=== PATIENT | female | born 1950 | race Caucasian/White ===

== ENCOUNTER → 2020-04-28 10:14 | Outpatient (CLI) | payer OTHER, SELFPAY ==
[2020-04-29 12:26] LABS: COVID19 Sendout Not Detected (Not Detect)
== END ==
PROVIDERS: Visit Provider Physician Assistant
DX: Z11.59 Encounter for screening for other viral diseases (principal)
CPT/HCPCS: 87635

== ENCOUNTER 2020-05-01 05:49 | Day surgery (SDC) | payer OTHER, SELFPAY ==
[2020-04-25 12:32] VITALS: BMI 21.4
[2020-05-01] VITALS (17 sets, daily range): BP systolic 116–165; BP diastolic 66–95; PULSE 54–73; RESP 12–22; TEMP 35.7–36.9; O2SAT 92–100; BMI 21.4
--- NOTE | 2020-05-01 | DI.RAD.S_ITS ---
PROCEDURE: XR KNEE RT 1TO2V INDICATIONS: TOTAL RIGHT KNEE TECHNIQUE: Two view(s) of the knee acquired. COMPARISON: None. FINDINGS: Bones: Patient is status post knee joint arthroplasty. Hardware components are in expected positions. Visualized bony structures are intact. Soft tissues: Overlying postoperative changes are noted. IMPRESSION: Normal alignment after right total knee arthroplasty. Dictated by: Tommy Grajeda M.D. on 05/01/2020 at 10:33 Approved by: Tommy Grajeda M.D. on 05/01/2020 at 10:34
[2020-05-01] MEDS: LACTATED RINGERS 1,000 ML 42 ML IV ×3 (07:14→10:25)
[2020-05-01] MEDS: ACETAMINOPHEN 325 MG TABLET 975 MG PO (07:23)
--- NOTE | 2020-05-01 07:41 | PM.PREOP ---
Pre-operative Note COVID-19 COVID-19 status: Negative Result date/Date tested (Pos, Neg/Pending): 04/28/20 Interval Note History & Physical reviewed/Exam performed by Physician: Yes Changes to H&P: No H&P completed within 30 days and has changed as indicated here:: Plan for right total knee arthroplasty.
[2020-05-01] MEDS: CEFAZOLIN 2 GM/100 ML FROZ.PIGGY IV ×3 (07:43→23:33)
[2020-05-01] MEDS: TRANEXAMIC ACID 1,000 MG VIAL 1000 MG IV ×2 (08:10→09:20)
--- NOTE | 2020-05-01 08:20 | SUR.OPER ---
Supine on padded OR bed. Pillow under head, arms secured on padded armboards <90 degree abduction. Safety belt across torso. Non-operative leg secured with tape over blanket over lower leg. Table positioner with bump for operative leg. Foam padded brace at thigh of operative leg.
[2020-05-01] MEDS: ROPIVACAINE 0.5% PF 5 MG/ML 20ML VIAL 30 ML INJ (08:28)
[2020-05-01] MEDS: KETOROLAC 30 MG/ML VIAL INJ (08:29)
[2020-05-01] MEDS: MORPHINE 4 MG/ML INJ INJ (08:30)
--- NOTE | 2020-05-01 09:41 | P.OP_ITS ---
Operative Date/Time/Diagnoses Date of procedure: 05/01/20 Time of procedure: 09:41 Pre-op diagnosis: right knee OA Post-op diagnosis: same Procedure & Clinicians Procedure: right total knee arthroplasty Same procedure as scheduled: Yes Indications: Right knee osteoarthritis which has failed conservative measures. Surgeon: James Jones Boiler Control Room Operator: Eusebio Alas Anesthesia Type: Spinal and MAC +/- Operative Notes Findings: medial compartment bone on bone osteoarthritis, PF bone on bone osteoarthritis, Grade 4 chondromalacia of lateral compartment Closure Type: primary Specimen(s): none sent Prosthetic devices, grafts, tissues, transplants, or devices: Gallegos [employer] Nephew Journey 2 CR size 5 right femur Journey size 3 right tibial base plate 29 mm oval patellar button Size 3-4 right 9 mm thick Journey 2 deep dish polyethylene Estimated Blood Loss (mL): 100 Blood products transfused: none Tourniquet time (min): 60 Procedure in detail: Patient was met in the preoperative holding area where the site and side of surgery were marked by MD. Surgical consent has been reviewed and signed in clinic however this was not transmit over to the hospital so surgical consent was read done in the preoperative holding area all questions were answered patient demonstrates understanding of the risks and benefits of surgery. Patient was then brought back in the operating room where she received received a spinal anesthetic she was transferred onto the operating room table a nonsterile tourniquet was placed on the right thigh and the right lower extremities prepped and draped in normal sterile fashion. A surgical time-out was performed verifying the site and side of surgery as well as the name of the patient. A midline incision over the knee was made using 10. Blade. At this point the spinal was not complete so she received anesthesia. Medial and lateral flaps were elevated with a 10. Blade. A medial parapatellar arthrotomy was then performed after placing a FiberWire anti propagation states. Hoffa's fat pad was released off the anterior aspect of the tibia and Hoffa's fat pad was removed. A medial peel was then performed which was slightly larger than my normal peel due to varus deformity of the knee which was partially correctable on preop exam Whitesides line was then marked. The ACL was removed. Lateral meniscus was also removed. The femoral drill was then used approximately 1 cm anterior to the PCL footprint. This gained us access the femoral canal this was then repeated for the tibial side at the ACL footprint. The intramedullary guide for the femoral cut was then placed and a 5 degree cut was made on the right distal femur. We ended up pinning at neutral and then taking 2 more mm. We then turned our attention to the tibial side intramedullary joselyn was placed and the tibial cutting jig was then placed. Drop lock joselyn was used to verify varus and valgus alignment in a 3rd pin was then placed. Oscillating saw was used to make our tibial cut we then brought the knee into full extension and was still little tight in extension as well as flexion. We took 2 more mm off the tibia which he was seen 9 mm extension and flexion gap based off static blocks. We then sized the femur which was a size 5 and set rotation based off a gap global expansion sales director. This was then verified with epicondylar axis as well as Whitesides line. The 5 in 1 cutting block for size 5 was then pinned in place and oscillating saw was used to make these cuts. The cutting block was then removed. The tibia was sized to a size 3 or 4. We initially trialed with this size 4 tibial base plate a 9 mm thick CR polyethylene we used a floating technique to the lori our external rotation of the tibial base plate. The patella was then cut and sized to size 29 mm oval button this was then drilled and a trial patella button was placed. Trial components were then removed and we looked at the tibia for prepping. After setting rotation at a size 4 tibial base plate had some medial overhang. At this point we elected to downsize to a size 3 tibial base plate this captured the bone well. Our rotation was set to the arzola on her tibia based off of the arzola we made using floating technique. This then pinned in place and drilled and punched for the tibial base plate. We then used our anterior and posterior chamber cuts to make bone plugs for the femoral and tibial side. The cut surfaces of the knee was then thoroughly irrigated with pulse lavage and our local anesthetic was injected into the back of the knee as well as the medial and lateral periarticular spaces. Then finger packed cement onto the tibial cut surface as well as the underside of the tibial base plate. Suction was also used to help interdigitate the cement into bone. The tibial base plate was then malleted onto the cut surface of the tibia and all excess cement was removed. Cement was then finger packed onto the cut surface of the femur as well as placed on the posterior feet of the femoral component this was then malleted into place all excess cement was removed we used a 9 mm thick CR trial polyethylene to bring the knee into full extension and hold the foot in internal rotation while we let the cement cure. During this time we then cemented the patella and placed a patellar clamp and all excess cement was removed. We then placed Betadine into the wound and allowed the cement to fully cure once the cement was fully cured we then thoroughly irrigated the knee with pulse lavage normal saline. We then removed the trial polyethylene component make sure there is no cement overhang posteriorly. A size 9 mm thick deep dish polyethylene for a size 3-4 right tibial base plate was then placed into the locking mechanism and secured. The tourniquet was let down at 60 minutes of time and hemostasis was gained using electrocautery. 1. Vicryl was used in interrupted fashion to close the medial parapatellar arthrotomy we then used a running Quill suture to finish closing the medial parapatellar arthrotomy. The entire bifurcation FiberWire stitch was then removed 2 Vicryl was used in subcutaneous layer followed by a running strata fix in the subcuticular layer followed by Dermabond and an Aquacel dressing. Complications: none Post-operative Condition: stable Disposition: PACU Plan for aftercare: Weightbearing as tolerated right lower extremity, aspirin 81 mg b.i.d. for 6 weeks for DVT prophylaxis, 24 hours of postop antibiotics.
[2020-05-01] MEDS: fentaNYL 100 MCG/2 ML INJ IV ×2 (09:59→10:07)
--- NOTE | 2020-05-01 10:07 | SUR.PHASEI ---
Pt able to wiggle toes bilateral, Xray on the way for postop-
[2020-05-01] MEDS: OXYCODONE IR 5 MG TABLET PO ×6 (10:11→23:38)
[2020-05-01] MEDS: LACTATED RINGERS 1,000 ML 100 ML IV ×2 (10:52→21:28)
[2020-05-01] MEDS: ACETAMINOPHEN 325 MG TABLET 650 MG PO ×2 (14:01→21:21)
--- NOTE | 2020-05-01 14:16 | CM.DANOTE ---
Patient is a 69 year old female who was admitted on 05/01/20 for RT TKA. Pt has [facility] for insurance and her PCP is Dr. Angel. EMR was reviewed. Per Ortho MD, pt tolerated her surgery well this morning and will order PT to eval when appropriate. PT ordered and pending. SW met bedside with pt and spouse and explained role and they confirm they live in [place] at home and both are active and independent at baseline. Pt denies any hx of HH or SNF and DPOA is her spouse. Spouse is retired and available to provide assist if needed. Pt is not established with outpt PT yet but anticipates home with spouse assist when stable. SW explained PT initial eval and recommendations prior to d/c and spouse confirms he is available and willing to participate in CG training. Plan: SW to follow for PT eval and recommendations to confirm plan of d/c home with spouse assist when medically stable and any further identified discharge planning needs. JOBY Shine Discharge Planning/Care Management CM Discharge Assessment Start: 05/01/20 14:15 Freq: Status: Active Protocol: Document 05/01/20 14:15 BF (Rec: 05/01/20 14:16 BF [id number]) Discharge Planning Assessment Assigned Pad Hand JOBY [employer] DPOA/Assigned Designee Name zeb Bingham Contact Information [phone] Advance Directives? No Advance Directives on File No History Provided By Patient,Significant Other, Medical Record Has Patient been admitted in last 30 No days? Prior Living Arrangements House Household Members spouse Type of transporation used prior to Drives own vehicle admit Independent with ADL's Yes Is patient alert and oriented? Yes Caregiver for Another No Patient/Family Preference OP PT Therapy Barriers to Discharge No Discharge Plan Home Community Services Physical Therapy Transportation Arrangement Spouse bedside and confirms he can provide transport at d/c Referrals Initiated None needed Whiteboard Updated in Patient Room with Yes name and ext. # of Pad Hand Review Status In Process Please Provide Date Initial DC 05/01/20 Assessment Was Performed Next Review Type Continued Stay Review Pre-Anesthesia Assessment Start: 04/25/20 12:32 Freq: Status: Active Protocol: Document 04/25/20 12:32 CAB (Rec: 04/25/20 13:28 CAB [id number]) Pre-Anesthesia Assessment Patient Information Reviewed Via Phone Assessment Assessment Completed With Patient H&P Completed Within 30 Days Yes Diagnostic Results CBC,EKG Comment Outside Lab/EKG scanned to record, COVID screen @ [facility] 04/28 Primary Care Provider Mark Angel Seen Specialist in Last 12 Months Yes Specialist Seen Orthopedist Primary Language Indonesian Tobacco Grower Required No Height 165.1 cm Weight 58.513 kg Body Mass Index (BMI) 21.4 Hearing Ability Normal Visual Assist Magnifying Glass Dentition Type Teeth, Natural Present Barriers to Learning None Hx Anesthesia Reactions Yes: Whole body shakes intermittently x 2 months s/p knee surgery '10, wght loss Hx Family Anesthesia Reaction No Hx Malignant Hyperthermia No Hx Blood Transfusions No Anesthesia Review Requested No alcohol intake current alcohol intake frequency 0-2 drinks per day Smoking Status Former smoker Tobacco type cigarettes how long ago did patient quit smoking Quit 30 years ago Substance Use Type does not use Pain Present Pain Reported Musculoskeletal Symptoms Abnormal Gait,Difficulty Walking,Joint Pain History of Falling (Recent or History of No ) Patient is completely paralyzed or No completely immobile Mental Status Oriented to own ability Is patient on oxygen? No Does patient have PERALTA/SOB No Hx Sleep Apnea No Currently Taking a Beta Lacie No Can You Climb a Flight of Stairs Without Yes SOB Hx Chest Pain No Hx SOB No Hx Syncope or Dizziness No Anti-Coagulant Therapy No Has a Mainframe Programmer Analyst No Cardiac Testing No Hx Pacemaker/ICD No Pacemaker Rep Required? No Cardiac Clearance Received Not Applicable Diet Type At Home Regular dysphagia No Gastrointestinal Symptoms Hemorrhoids,Reflux Urinary Catheter Present No Hx Urinary Self Catheterization No Diabetes No Patient No Lactating No Hx Drug Resistant Organism No Presence of External or Internal Medical No Devices Have you had any close contact with No someone diagnosed with COVID-19? Marital Status Lives With spouse Prior Living Arrangements House Number of Floors (Floors) Two Floors Support System Spouse Does the Patient Have Assistance After Yes Surgery Patient Discharge Plan Description Return Home Comment Pt advised overnight length of stay per surgeon Feels Safe in Current Environment Yes Been Physically Hurt or Threatened By a No Person in Current Environment Do you have thoughts of harming yourself None or others? Are you currently considering suicide? No Do you have a plan to hurt yourself or No Plan others? Do You Have Any Spiritual Beliefs That No May Affect Your HC Choices? Do You Have Any Cultural Practices That No May Affect Your HC Choices? Comment Hindu Who Can We Speak to About Patient's Care Family, friends Identifying Code for Release of Patient Declines to issue Information Health Care Proxy/Next of Kin Alek () Health Care Proxy Emergency Contact Name Alek () Emergency Contact Advance Directives? No Power of Head Of Integrated Media No PAC Instructions Do not shave/clip surgical site,Medications to take/avoid ,Nasal antibiotic,No ETOH/ petroleum product on skin DOS, NPO,Pre-op antibiotic,Sturdy shoes/comfortable clothes,Do not bring valuables and remove jewelry
--- NOTE | 2020-05-01 14:40 | PC.NURSE ---
Post-op: Arrived to room 212 at 1035. Alert and oriented X3. Dressing to R knee C/D/I. Circulation/PP+ WNL to BLE's. Feet warm, pink, cap refill < 2 sec. Reports still numb/tingling from spinal, but it continues to resolve. Was up with therapy, now back in bed. Has not voided yet, denies urge to void at this time. Reports pain in R knee well-managed with Oxycodone, Tylenol and ice pack. Tolerating PO's without N/V, BT+. IVF per orders, site in L hand WNL. Oriented to room and call light and encouraged to make needs known. Call light and belongings within reach, bed alarm on.
--- NOTE | 2020-05-01 15:35 | PT.IIE ---
Current Diagnoses Unilateral primary osteoarthritis, right knee (05/01/20) Surgery Performed Operation Date: 05/01/20 07:45 Actual Procedures p Total Knee Arthroplasty(Right) - James Jones MD Surgical History (Last Updated 04/25/20 @ 13:12 by Glenis Simmons RN) History of carpal tunnel surgery of right wrist (Acute) History of hysterectomy (Acute) History of lumpectomy of left breast (Acute) Hx of arthroscopy of right knee (Acute ~2009) Hx of thumb surgery (Acute) Medical History (Last Updated 04/25/20 @ 13:12 by Glenis Simmons RN) Acid reflux (Acute) Anesthesia complication (Acute) Anxiety (Acute) Easy bruisability (Acute) Osteoarthritis (Acute) Physical Therapy Inpatient Evaluation/Re-Eval M1 PT/OT-IP Prior Functional Status Start: 05/01/20 13:07 Freq: NEEDED Status: Active Protocol: Document 05/01/20 15:09 AW (Rec: 05/01/20 15:35 AW [id number]) Medical Review Prior Functional Status Medical History Reviewed Yes Communication Pt is an effective verbal communicator. Mobility and Gait Independent without assistive device and without meaningrul time or distance limit. Activities of Daily Living and IADL's IND. 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 1 [place] with porch pull for support. Pt enters main level and is prepared to stay on that level as long as needed. Home Environment Standard Height Toilet,Walk in Shower,Tub/Shower Home Equipment Front Wheel Walker Employment Status Retired Additional Social History Comment Pt lives with her spouse, Zachery. Both are retired. Zachery will be able and available to assist as needed at discharge. M2 PT-IP Current Condition Start: 05/01/20 13:07 Freq: NEEDED Status: Active Protocol: Document 05/01/20 15:09 AW (Rec: 05/01/20 15:35 AW [id number]) Physical Therapy Current Condition Current Condition Evaluation Date 05/01/20 Treatment Diagnosis R TKA; difficulty in walking Onset Date 05/01/20 Weight Bearing Status Weight Bearing Status Weight Bear as Tolerated M3 PT-IP Subjective Start: 05/01/20 13:07 Freq: NEEDED Status: Active Protocol: Document 05/01/20 15:09 AW (Rec: 05/01/20 15:35 AW [id number]) Subjective Physical Therapy Visit Type Type Initial Evaluation Visit Start Time 14:02 Visit Stop Time 14:25 Total Visit Minutes 23 Physical Therapy Visit Comments Patient Comments Pt requests to use the toilet Patient Goals To return to normal activity Therapy Pain Assessment Pain When Pain Assessed At Rest Pain Present Pain Present Pain Reported Location right knee Intensity 5 Scale Used Numeric (0 - 10) Pain Management Techniques Apply Cold,Re-positioning, Timing of Activity with Medications M4 PT-IP Mobility and Gait Start: 05/01/20 13:07 Freq: NEEDED Status: Active Protocol: Document 05/01/20 15:09 AW (Rec: 05/01/20 15:35 AW [id number]) PT-Bed Mobility Assessment Supine to Sit Supine to Sit Standby Assistance Sit to Supine Sit to Supine Standby Assistance Scooting Scooting to Edge of Bed Standby Assistance PT-Transfer Assessment Sit to and From Stand Sit to and from Stand Contact Guard Assistance,1 Person Assistance,Use of Upper Extremities Equipment Transfer Assistive Device Gait Belt,Front Wheeled Walker Orthotic/Prosthetic Devices or Brace: No Transfers Transfer Destination Bed,Toilet Transfer Technique pt ambulated with FWW Transfer Ability Level of Assist Contact Guard Assistance Comments Mobility Comments Pt was sitting up in bed with spouse at bedside when PT arrived. Supine BP was 148/74 HR 58. With HOB elevated ~25 degrees, pt completed supine to sit SBA and was able to sit EOB without UE support. She stood using FWW CGA and ambulated from the left side of the bed to the toilet CGA with FWW. She transferred to and from the toilet using the grab bars and CGA. She was unable to void. She stood at the toilet without UE support for briefs management and then ambulated back to the bed where she completed sit to supine SBA. BP after activity was 137/91 HR 62. Pt was repositioned on the bed with call light and all needs in reach. Bed alarm was armed for safety. Gait Assessment Gait Gait Assistance Required: Contact Guard Assist Distance (Feet) 15 Able to Maintain Weight Bearing Status Yes During Gait Assistive Devices Assistive Device Gait Belt,Front Wheeled Walker Orthotic/Prosthetic Devices or Brace: No Gait Deviations General Gait Pattern Antalgic,Decreased Stride Length,Flexed Trunk,Step-to Gait Factors Limiting Gait Function Factors Limiting Gait Function Decreased Activity Tolerance, Decreased Sensation,Decreased Strength,Limited Range of Motion,Pain,Poor Balance Comments Gait Comments See mobility comments for details. Stair Climbing Assessment Comments Stair Climbing Comments Not assessed. PT-Balance Assessment Sitting Balance and Reactions Static Sitting Balance Ability Normal Dynamic Sitting Balance Ability Normal Standing Balance and Reactions Static Standing Balance Ability Good Dynamic Standing Balance Ability Good M5 PT-IP Objective Assessments Start: 05/01/20 13:07 Freq: NEEDED Status: Active Protocol: Document 05/01/20 15:09 AW (Rec: 05/01/20 15:35 AW [id number]) Orientation Orientation/Cognition Level of Alertness Alert Orientation Name,Day of Week,Place, Situation Language Function Ability No Deficits Noted Safety Awareness Understands Safety Issues Memory Description No Deficits Noted Gross Range of Motion Upper Extremity ROM Assessment Within Functional Limits Lower Extremity ROM Assessment Right Impaired Strength Upper Extremity Strength Assessment Within Functional Limits Lower Extremity Strength Assessment Right Impaired Coordination Assessment Gross Coordination Gross Coordination WNL Sensation Assessment Sensation Gross Sensation Right LE Impaired,Left LE Impaired Sensation Description Numbness Comments Sensation Comments Numbness of bilateral hips and posterior thighs Muscle Tone Muscle Tone WNL Yes M6 PT-IP Treatment Start: 05/01/20 13:07 Freq: NEEDED Status: Active Protocol: Document 05/01/20 15:09 AW (Rec: 05/01/20 15:35 AW [id number]) Physical Therapy Treatment Exercises Exercises Ankle Pumps,Quad Sets,Heel Slides,Passive Knee Extension Hang Education Education Provided Precautions,Weight Bearing Status,Post-Op Packet,Safety Other Treatments Other Treatment Performed Provided education on role of PT, plan of care, weightbearing status, and safe use of FWW. M7 PT-IP Assessment and Plan Start: 05/01/20 13:07 Freq: NEEDED Status: Active Protocol: Document 05/01/20 15:09 AW (Rec: 05/01/20 15:35 AW [id number]) PT Summary Assessment and Plan Potential Rehabilitation Potential Excellent Status of Condition at Evaluation Evolving Summary Impairments Pain,ROM,Strength,Balance, Sensation,Bed Mobility, Transfers,Gait,Activity Tolerance Assessment Summary Leandra is a 69 yo woman seen for PT evaluation on POD0 following R TKA. She is independent in all regards at baseline. She lives with her spouse who is retired and will be available and able to assist at discharge. On evaluation, she required SBA for bed mobilty and CGA for transfers and short bout ambulation with FWW. PT anticipates she will be safe to discharge home once medically cleared. Goals Bed Mobility Goal Independent Transfer Goal Independent,Front Wheeled Walker Gait Goal Standby Assistance,Front Wheel Walker Gait Distance 200 Other Goals - up/down one step with unilateral rail SBA Days to Meet Goals 2 Frequency of Treatment Frequency Of Treatment Twice a Day Treatment Plan Physical Therapy Treatment Plan Bed Mobility Training,Transfer Training,Gait Training, Therapeutic Exercise,Balance Retraining,Post Op Education, Discharge Planning,Hot or Cold Pack Other Recommendations and Next Treatment transfers, gait training with Focus FWW, stair training Recommendations To Nursing Amount of Assist Needed 1 Person Assist Discharge Recommendations PT Discharge Recommendations Home with Assistance, Outpatient PT Transportation Needs at Discharge Private Vehicle
[2020-05-01] MEDS: DOCUSATE 100 MG CAPSULE PO (21:20)
[2020-05-01] MEDS: SERTRALINE 50 MG TABLET 100 MG PO (21:20)
[2020-05-01] MEDS: ASPIRIN EC 81 MG TABLET PO (21:20)
[2020-05-02 03:01] VITALS: BP 133/67; PULSE 60; RESP 14; TEMP 36.9; O2SAT 94
[2020-05-02] MEDS: OXYCODONE IR 5 MG TABLET PO ×3 (03:03→09:17)
[2020-05-02 06:22] LABS: Hematocrit 32.2 % (36-46); Hemoglobin 11.3 g/dL (12.0-16.0)
--- NOTE | 2020-05-02 07:32 | PM.DS.1 ---
History of Present Illness History of Present Illness Date Patient Seen: 05/02/20 Time Patient Seen: 07:32 Chief complaint: RT TKA *OPB* Narrative: Admitted yesterday for elective right TKA. Patient has a longstanding history of right knee OA which has now failed conservative measures. Discharge Providers Provider Discharge Date: 05/02/20 Primary care physician: Mark Angel MD Consults: 05/01/20 10:40 Consult to Discharge Planning Routine Comment: Consult to Physical Therapy Evaluate & Treat Comment: Physician Instructions: postop TKA protocol Consult to Respiratory Therapy Evaluate & Treat Comment: Physician Instructions: Evaluate and treat Discharge provider: James Jones MD Summary Hospital Course Discharge Diagnosis: s/p R TKA Hospital Course: Patient was admitted yesterday for right TKA for treatment of right knee OA. She tolerated the surgery well. She is making progress with PT. Plan to DC home today. Status at Discharge Cognitive/behavioral status at discharge: oriented Functional status at discharge: uses cane/walker Overall status at discharge: patient is progressing back to baseline Time Spent with Patient Time spent: Less than 30 minutes Exam Vital Signs (past 8 hours): - 05/01/20 23:40 05/02/20 03:01 Temperature 98.5 F 98.5 F Pulse Rate 57 L 60 Respiratory Rate 13 14 Blood Pressure 133/78 133/67 Pulse Oximetry 92 94 Oxygen Delivery Method Room Air Oxygen Flow Rate 0 Narrative Exam Narrative: NV intact in RLE. Dressing c/d/i Objective Labs Result Diagrams: 05/02/20 05:45 Labs: Laboratory Results - last 24 hr 05/02/20 05:45 Hgb 11.3 L Hct 32.2 L Discharge Assessment & Plan Assessment and Plan Assessment: Patient is a 69 yo female now s/p POD #1 from R TKA. Doing well. Plan to DC home today. Plan of Treatment: WBAT RLE ASA 81mg BID for 6 weeks for DVT prophylaxis PT referral has been set up pre-op OK to shower over the dressing, do not soak Follow up appointment has been scheduled Discharge Plan Discharge Plan Patient Disposition: Home Discharge comment: DC home when cleared by PT Discharge Med Rec/Prescriptions Prescriptions: New aspirin 81 mg Tablet,Delayed Release (Dr/Ec) 81 mg PO BID Qty: 84 RF: 0 oxycodone 5 mg Tablet 5 mg PO Q4HR PRN (Reason: Pain (Scale Score 4-6)) Qty: 50 RF: 0 Continued sertraline 100 mg Tablet 100 mg PO BEDTIME RF: 0 Discontinued ibuprofen 200 mg Tablet 400 mg PO DAILY RF: 0 Follow up/Referrals: James Jones MD [Physician] - Mark Angel MD [Primary Care Provider] - Discharge Orders: Discharge (Order); Ordered 05/02/20 Ordered By: James Jones Provider Discharge Instructions Diet: Regular Activity: WBAT RLE, avoid falls Cold/Heat Therapy: ICE as needed several times per day to reduce pain and swelling. Place a towel between the ice and your skin to avoid talavera. Skin/Wound/Dressing Care Dressing: Leave the dressing in place until your post-op appointment Other wound treatment: OK to shower over the top of the incision. Do not soak the incision (IE no bathing) Visit Report/Discharge Packet Instructions: DI for Knee Replacement Stand Alone Forms: Surgery Discharge Print Language: Uzbek Discharge Data Primary Care Provider: Mark Angel Attending Provider: James Jones
[2020-05-02 07:39] VITALS: BP 125/75; PULSE 65; RESP 18; TEMP 36.6; O2SAT 97
[2020-05-02 07:42] VITALS: PULSE 65; RESP 16; O2SAT 95
[2020-05-02] MEDS: ACETAMINOPHEN 325 MG TABLET 650 MG PO (09:17)
[2020-05-02] MEDS: ASPIRIN EC 81 MG TABLET PO (09:17)
[2020-05-02] MEDS: DOCUSATE 100 MG CAPSULE PO (09:17)
--- NOTE | 2020-05-02 10:16 | PT.IPTN ---
Current Diagnoses Unilateral primary osteoarthritis, right knee (05/01/20) Surgery Performed Operation Date: 05/01/20 07:45 Actual Procedures p Total Knee Arthroplasty(Right) - James Jones MD Physical Therapy Treatment Note M2 PT-IP Current Condition Start: 05/01/20 13:07 Freq: NEEDED Status: Active Protocol: Document 05/01/20 15:09 AW (Rec: 05/01/20 15:35 AW [id number]) Physical Therapy Current Condition Current Condition Evaluation Date 05/01/20 Treatment Diagnosis R TKA; difficulty in walking Onset Date 05/01/20 Weight Bearing Status Weight Bearing Status Weight Bear as Tolerated M3 PT-IP Subjective Start: 05/01/20 13:07 Freq: NEEDED Status: Active Protocol: Document 05/02/20 09:42 CLB (Rec: 05/02/20 10:30 CLB [id number]) Subjective Physical Therapy Visit Type Type Treatment Note Visit Start Time 09:42 Visit Stop Time 10:16 Total Visit Minutes 34 Number of [employer] Visits 1 Physical Therapy Visit Comments Patient Comments Pt willing to participate with therapy. Therapy Pain Assessment Pain When Pain Assessed At Rest Pain Present Pain Present Pain Reported Location right knee Intensity 5 Scale Used 5/10 at rest, 5/10 during ambulation Pain Management Techniques Apply Cold,Re-positioning, Timing of Activity with Medications M4 PT-IP Mobility and Gait Start: 05/01/20 13:07 Freq: NEEDED Status: Active Protocol: Document 05/02/20 09:42 CLB (Rec: 05/02/20 10:30 CLB [id number]) PT-Bed Mobility Assessment Supine to Sit Supine to Sit Independent Scooting Scooting to Edge of Bed Independent PT-Transfer Assessment Sit to and From Stand Sit to and from Stand Standby Assistance,Use of Upper Extremities Equipment Transfer Assistive Device Gait Belt,Front Wheeled Walker Orthotic/Prosthetic Devices or Brace: No Transfers Transfer Destination Bed,Chair Transfer Technique pt ambulated with FWW Transfer Ability Level of Assist Standby Assistance Comments Mobility Comments Pt in bed upon arrival, pt performed therapeutic exercises. Pt independent to EOB. Pt stood SBA with FWW then ambulated in [place] ~230ft w/FWW/SBA. Pt performed stair training up/down platform step CGA with FWW. Pt sat in chair upon return to room SBA and performed HS. Pt was left in reclined chair with LLE in passive extension, call light and all other needs within reach, RN notified of pts progress and mobility. Gait Assessment Gait Gait Assistance Required: Standby Assistance Distance (Feet) 230 Able to Maintain Weight Bearing Status Yes During Gait Assistive Devices Assistive Device Gait Belt,Front Wheeled Walker Orthotic/Prosthetic Devices or Brace: No Gait Deviations General Gait Pattern Antalgic,Decreased Stride Length Factors Limiting Gait Function Factors Limiting Gait Function Decreased Activity Tolerance, Decreased Sensation,Decreased Strength,Limited Range of Motion,Pain,Poor Balance Comments Gait Comments Pt ambulated ~230ft SBA with FWW with cues for walker use, pt able to correct and manage walker appropriately for duration of ambulation. Stair Climbing Assessment Evaluation Level of Assist On Stairs Contact Guard Assistance Devices Stair Climbing Assistive Devices Front Wheel Walker Technique/Endurance Stair Climbing Direction Ascend and Descend Stair Climbing Technique Step to Step Number of Steps Climbed 1 Stair Climbing Set # Repetitions (reps) 1 Comments Stair Climbing Comments Pt has threshold step at home and walker can be used. M5 PT-IP Objective Assessments Start: 05/01/20 13:07 Freq: NEEDED Status: Active Protocol: Document 05/01/20 15:09 AW (Rec: 05/01/20 15:35 AW [id number]) Orientation Orientation/Cognition Level of Alertness Alert Orientation Name,Day of Week,Place, Situation Language Function Ability No Deficits Noted Safety Awareness Understands Safety Issues Memory Description No Deficits Noted Gross Range of Motion Upper Extremity ROM Assessment Within Functional Limits Lower Extremity ROM Assessment Right Impaired Strength Upper Extremity Strength Assessment Within Functional Limits Lower Extremity Strength Assessment Right Impaired Coordination Assessment Gross Coordination Gross Coordination WNL Sensation Assessment Sensation Gross Sensation Right LE Impaired,Left LE Impaired Sensation Description Numbness Comments Sensation Comments Numbness of bilateral hips and posterior thighs Muscle Tone Muscle Tone WNL Yes M6 PT-IP Treatment Start: 05/01/20 13:07 Freq: NEEDED Status: Active Protocol: Document 05/02/20 09:42 CLB (Rec: 05/02/20 10:30 CLB [id number]) Physical Therapy Treatment Exercises Exercises Ankle Pumps,Quad Sets,Heel Slides,Straight Leg Raises, Short Arc Quads,Passive Knee Extension Hang Other Treatments Other Treatment Performed seated HS with hold. M7 PT-IP Assessment and Plan Start: 05/01/20 13:07 Freq: NEEDED Status: Active Protocol: Document 05/02/20 09:42 CLB (Rec: 05/02/20 10:30 CLB [id number]) PT Summary Assessment and Plan Potential Rehabilitation Potential Excellent Status of Condition at Evaluation Evolving Summary Impairments Pain,ROM,Strength,Balance, Sensation,Bed Mobility, Transfers,Gait,Activity Tolerance Assessment Summary Pt is independent with bed mobility and SBA for all other mobility. Pt ambulated 230ft with no increase in pain. Pt seems able to d/c home with help from Zachery when medically stable. Recommendations To Nursing Amount of Assist Needed 1 Person Assist Discharge Recommendations PT Discharge Recommendations Home with Assistance, Outpatient PT Transportation Needs at Discharge Private Vehicle
--- NOTE | 2020-05-02 10:31 | CM.DPC ---
DCP: continued: case received, EMR reviewed. DC to home setting noted.Discussed in Team Rounds. PT stated pt would be seen this morning and then going home with her spouse's supportive assist.
[2020-05-02 11:20] VITALS: BP 133/58; PULSE 74; RESP 18; TEMP 37.1; O2SAT 91
--- NOTE | 2020-05-02 12:38 | PC.NURSE ---
Day shift note: Discharge instructions given to patient, discussed importance of F/U with Dr. Jones in 3 days, new medications and side effects, activity, dressing care, and s/sx of infections. Verbalized understanding of instructions. Home with via private vehicle. Cleared by PT
== END 2020-05-02 12:00 | disposition home or self-care (01) ==
LOC: OR 05:51 → AC 05:55
PROVIDERS: PCP Family Medicine; Referring Provider Orthopaedic Surgery Adult Reconstructive Orthopaedic Surgery; Visit Provider Orthopaedic Surgery Adult Reconstructive Orthopaedic Surgery
PROC: 0SRC0JZ Replacement of Right Knee Joint with Synthetic Substitute, Open Approach (ICD-10-PCS; CPT 27447; principal; 2020-05-01 07:45)
DX: M17.11 Unilateral primary osteoarthritis, right knee (principal); M94.261 Chondromalacia, right knee
CPT/HCPCS: 27447; 36415; 73560; 85014; 85018; 97110; 97116; 97161; C1776; J0690; J1100; J1885; J2250; J2270; J2274; J2405; J2704; J3010

== ENCOUNTER → 2023-01-09 10:22 | Outpatient (CLI) | payer OTHER, SELFPAY ==
[2020-05-01 06:17] VITALS: BMI 21.4
--- NOTE | 2023-01-09 10:25 | DI.RAD.S_ITS ---
PROCEDURE: XR HIP W PEL IF DONE NAZ MIN 4V INDICATIONS: left hip djd TECHNIQUE: AP pelvis with lateral view(s) of the right and left hip(s). COMPARISON: None. FINDINGS: Bones: No fractures or dislocations. Pelvic ring appears intact. Severe left hip degenerative changes with pronounced joint space loss, subchondral sclerosis, and cystic change. Mild right hip joint space loss/degenerative changes also present. Soft tissues: The visualized bowel gas pattern is normal. No suspicious soft tissue calcifications. IMPRESSION: Severe degenerative changes of the left hip. Dictated by: Jose David Canseco M.D. on 01/09/2023 at 12:17 Approved by: Jose David Canseco M.D. on 01/09/2023 at 12:20
--- NOTE | 2023-01-09 10:25 | DI.MRI.S_ITS ---
PROCEDURE: MR LUMBAR SPINE WO CON INDICATIONS: left lumbar radic TECHNIQUE: Noncontrast sagittal T1 spin echo and T2 fast echo, sagittal STIR, and T2 fast spin echo through the lumbar spine. In cases with scoliosis, additional coronal T2 fast spin echo may be performed. COMPARISON: [facility], CR, XR LUMBAR SPINE 2 OR 3 VIEWS, 02/18/2022, 10:33. FINDINGS: Image quality: Excellent. Alignment and Curvature: Mild levocurvature centered at L3-L4. A thin Bone Marrow: Marrow is of normal overall signal. No acute vertebral body compression fractures. Spinal Cord: Conus medullaris terminates at the L1 level. Visualized cord demonstrates normal signal and size. Paraspinous Soft Tissues: No paravertebral masses. T12-L1: Normal appearance. L1-L2: Mild facet hypertrophy. No canal stenosis or foraminal stenosis. L2-L3: Disc bulge. Facet hypertrophy. There is cqdg-vd-wrmduhwv canal stenosis, underestimated by choice of axial scan plane. Tfun-pb-zhyoyqgw bilateral foraminal narrowing. L3-L4: Disc bulge. Facet hypertrophy. Moderate canal stenosis. Moderate right foraminal narrowing with flattening deformity on the exiting right L3 nerve root. Mild to moderate left foraminal narrowing. L4-L5: Disc bulge. Facet hypertrophy. No significant canal stenosis. Mild left foraminal stenosis. L5-S1: Prominent bilateral facet hypertrophy. No canal stenosis or significant foraminal stenosis. IMPRESSION: 1. There is multilevel underlying facet arthropathy. 2. Canal stenosis is mild to moderate at L2-L3 and moderate at L3-L4. 3. Multilevel foraminal narrowing as described above. Dictated by: Thierry Pruett M.D. on 01/09/2023 at 11:39 Approved by: Thierry Pruett M.D. on 01/09/2023 at 11:43
== END ==
PROVIDERS: PCP Family Medicine; Referring Provider Physical Medicine & Rehabilitation; Visit Provider Physical Medicine & Rehabilitation
DX: M47.816 Spondylosis without myelopathy or radiculopathy, lumbar region (principal); M47.817 Spondylosis without myelopathy or radiculopathy, lumbosacral region; M48.061 Spinal stenosis, lumbar region without neurogenic claudication; M16.9 Osteoarthritis of hip, unspecified
CPT/HCPCS: 72148; 73522

== ENCOUNTER 2023-03-11 14:36 | Outpatient (CLI) | payer OTHER, SELFPAY ==
[2020-05-01 06:17] VITALS: BMI 21.4
[2023-03-11] VITALS (8 sets, daily range): BP systolic 193–221; BP diastolic 83–95; PULSE 61–65; RESP 11–17; TEMP 36.7; O2SAT 99–100
--- NOTE | 2023-03-11 14:37 | DI.RAD.S_ITS ---
PROCEDURE: PAIN L/S TRANSFORAMINAL INJECT INDICATIONS: SPONDYLOSIS COMPARISON: None. FINDINGS: Fluoroscopic spot filming was performed to verify placement of spinal needles at the left L3-L4 level(s), as labeled on the films. IMPRESSION: Fluoroscopic C-arm imaging utilized during left L3-L4 transforaminal epidural steroid injection. Dictated by: Thierry Pruett M.D. on 03/11/2023 at 16:53 Approved by: Thierry Pruett M.D. on 03/11/2023 at 16:54
[2023-03-11] MEDS: MIDAZOLAM 2 MG/2 ML VIAL IV (15:33)
[2023-03-11] MEDS: BUPIVACAINE 0.25% (PF) VIAL 2 ML INJ (15:35)
[2023-03-11] MEDS: DEXAMETHASONE 10 MG/ML VIAL 20 MG INJ (15:35)
[2023-03-11] MEDS: IOPAMIDOL 15 ML VIAL 3 ML INJ (15:35)
[2023-03-11] MEDS: BETAMETHASONE 30 MG/5 ML MDV 6 MG INJ (15:36)
--- NOTE | 2023-03-11 15:46 | P.PCN_ITS ---
Date/Time/Diagnoses Date of procedure: 03/11/23 Time of procedure: 15:47 Pre-procedure diagnosis: 1. FORAMINAL STENOSIS WITH LE SYMPTOMS Post-procedure diagnosis: same Procedure Notes Procedure: 1. FLUOROSCOPICALLY GUIDED CONTRAST CONTROLLED TRANSFORAMINAL EPIDURAL STEROID INJECTION - LEFT L3/4 TFESI Indications: Leandra is referred by Dr. Angel for treatment of Foraminal Stenosis with left LE Symptoms Physician: Nomi Gibson Total Fluoroscopy time (seconds): 10 Total sedation minutes: 11 Complications: none Procedure in detail & Post-procedure care: FINDINGS Foraminal Nerve Root Compression secondary to disc disease and facet hypertrophy DESCRIPTION OF PROCEDURE Following review of allergy and review of potential side effects and complications, including, but not necessarily limited to, infection, allergic reaction, local tissue breakdown, stroke, temporary or permanent nerve injury, paralysis, and possible , the patient indicated that the patient understood and agreed to proceed. An informed consent document was signed by the patient, witnessed by a nurse, and placed in the patient's chart. Additionally, other treatment options including medications, modalities, and physical therapy were reviewed with the patient. After review of previous anaesthesic history and IV conscious sedation the patient was deemed safe to proceed with today?s procedure with IV conscious sedation as ASA class II designation. Safety time-out was performed to confirm patient ID, procedure to be performed and site of procedure. IV sedation was accomplished with a combination of 2mg of Versed was administered by the RN after DO order, titrated to patient comfort during the course of the procedure while the patient remained responsive to all verbal commands. In the prone position following sterile prep and drape of the lumbar region, the left L3/4 posterior neuroforamen was identified fluoroscopically. The skin was anesthetized via a 25-gauge 1.5-inch needle with 1% lidocaine solution. At this point, a 25-gauge 3.5-inch spinal needle was atraumatically introduced and advanced under fluoroscopic guidance through the posterior left L3/4 neuroforamen to approximately the anterior aspect of the canal. Depth was confirmed on lateral view. Following negative aspiration, injection of approximately 1.5 cc of Isovue 200 under live fluoroscopy in the AP view confir med excellent flow along the nerve root, into the epidural space without vascular or intrathecal uptake observed. Radiological data, including multiple fluoroscopic views of the lumbosacral spine, reveal a spinal needle at the left L3/4 posterior neuroforamen. Subsequent views show flow of contrast material flowing superiorly and inferiorly along the nerve root confirming epidural flow. Subsequently, a test dose of 1.5cc of 1% lidocaine solution was administered and patient was observed for two minutes for signs or symptoms of complications, including abdominal pain, shortness of breath, bilateral upper or lower extremity weakness, nausea and vomiting, prior to steroid injection. At this point, a total of 3cc or 20mg of dexamethasone and 6mg betamethasone was injected without incident. The patient tolerated the procedure well without signs or symptoms of complications prior to transfer to the recovery area continued monitoring without incident. The patient was then transferred to the recovery area where they were observed for an appropriate time after the injection. The patient reported a VAS score of 7 prior to the procedure and a post-procedure VAS of 0. POST OP INSTRUCTIONS The patient was provided a Pain Log to continue to record their response to the target-specific procedure prior to follow-up visit with their referring physician. Additionally, specific post-injection care instructions and a contact number to our office were provided if concerns arise regarding possible complications associated with the procedure are suspected.
== END 2023-03-11 16:09 | disposition home or self-care (01) ==
PROVIDERS: PCP Family Medicine; Referring Provider Physical Medicine & Rehabilitation; Visit Provider Physical Medicine & Rehabilitation
DX: M48.061 Spinal stenosis, lumbar region without neurogenic claudication (principal); M51.16 Intervertebral disc disorders with radiculopathy, lumbar region; M47.26 Other spondylosis with radiculopathy, lumbar region
CPT/HCPCS: 64483; 99152; J0702; J1100; J2250; J3490

== ENCOUNTER 2023-09-02 11:38 | Day surgery (SDC) | payer OTHER, SELFPAY ==
[2020-05-01 06:17] VITALS: BMI 21.4
[2023-08-26 08:38] VITALS: BMI 20.7
[2023-09-02] VITALS (10 sets, daily range): BP systolic 95–181; BP diastolic 48–130; PULSE 56–669; RESP 12–18; TEMP 36.2–36.8; O2SAT 97–100; BMI 20.7
[2023-09-02] MEDS: ACETAMINOPHEN 325 MG TABLET 975 MG PO (12:30)
[2023-09-02] MEDS: CELECOXIB 200 MG CAPSULE PO (12:30)
[2023-09-02] MEDS: LACTATED RINGERS 1,000 ML 42 ML IV ×2 (12:31→15:05)
[2023-09-02] MEDS: VANCOMYCIN 1,000 MG/200 ML PIGGYBACK 200 MG IV (12:31)
--- NOTE | 2023-09-02 12:52 | PM.PREOP ---
Pre-operative Note COVID-19 COVID-19 status: Negative Interval Note History & Physical reviewed/Exam performed by Physician: Yes Changes to H&P: No
--- NOTE | 2023-09-02 12:52 | PM.OP.1 ---
Operative Date/Time/Diagnoses Date of procedure: 09/02/23 Time of procedure: 13:20 Pre-op diagnosis: left hip OA Post-op diagnosis: same Procedure & Clinicians Procedure: Left total hip arthroplasty anterior approach Same procedure as scheduled: Yes Indications: The patient has had progressively worsening left hip pain with radiographic changes consistent with arthritis. Non-operative management has failed and the patient has requested total hip replacement. The risks, benefits and alternatives to surgery were discussed with the patient prior to proceeding. Risks discussed included, but were not limited to, failure to relieve pain, leg length discrepancy, dislocation, stiffness, infection, nerve damage, deep venous thrombosis, pulmonary embolism, stroke, coma, heart attack, permanent paralysis and , as well as the potential need for eventual revision of the prosthetic. Surgeon: Mckayla Gallegos Structural Engineering Project Manager: Eusebio Alas Anesthesia Type: General and Spinal Operative Notes Findings: Severe left hip OA, adequate stability, soft bone Closure Type: primary Specimen(s): none sent Prosthetic devices, grafts, tissues, transplants, or devices: Gallegos [employer] Nephew R3 52, neutral poly liner, one 6.5 mm screw, polar stem size 1 standard offset, 36 x +0 Oxinium Estimated Blood Loss (mL): 250 Blood products transfused: none Procedure in detail: The patient was brought to the operating room. Patient was carefully positioned in the supine position. Time-out was performed and antibiotics were given. Anesthesia was induced. She was positioned in the on the table in order to allow hyperextension of the hip. The left lower extremity was prepped and draped in a standard sterile fashion. An anterior left hip incision was made 1 fingerbreadth lateral to the anterior superior iliac spine and extended distally towards the greater trochanter. Dissection was carried out through skin and subcutaneous tissues. Superficial hemostasis was achieved. The fascia over the tensor fascia sanjuana was defined and incised with a knife. Two Allis clamps were used to grasp the fascia. Tensor fascia sanjuana was retracted laterally. A gelpi retractor was placed. Dissection was carried out down along the neck. The circumflex vessels were carefully identified and cauterized with the Aqua Mantis. A PA was used during the procedure and was essential for intraoperative retraction and safe implantation of the components. There was good visualization of the femoral neck. A Cobra was placed superior to the neck and the gluteus fibers were carefully stripped from that superior aspect of the capsule. A 2nd retractor was placed along the inferior aspect of the neck. The rectus insertion along the capsule was partially released. A 3rd retractor that was then gently placed over the rim of the acetabulum under the rectus. Capsule was carefully incised and released from the intertrochanteric line circumferentially superior to the mid sagittal line and inferiorly to the mid sagittal line until the lesser trochanter was palpable. A tag stitch was placed both in the superior and inferior limb of the capsular insertion. Along the acetabulum capsule was also released up to the mid sagittal 12:00 position. A portion of the labrum was resected. A saw was used to perform an osteotomy at the level of the intertrochanteric line and the junction of the superior femoral neck leaving approximately 1 finger breath of residual inferior neck above the lesser trochanter. A 2nd cut was made along the femoral neck at the base of the head and a napkin ring of neck was removed. Corkscrew was placed in the femoral head and the head was removed without difficulty. Retractors were then repositioned around the acetabulum. Residual labrum was resected and additional osteophytes were removed. A reamer that was 4 mm below the templated size was placed by hand in the acetabulum and it was reamed to centralize the acetabulum. It was then reamed up to 2 under the templated size and fluoroscopy was brought in to confirm the position of the reaming and depth of reaming. I reamed 1 under the anticipated size. A trial cup was placed and noted that it was appropriately sized and fluoroscopy confirmed position and depth. The component was open and inserted without difficulty fluoroscopic imaging was used to confirm that the cup had been adequately seated and was well positioned. It was further stabilized with a single screw. Neutral poly liner was placed. The cup was tested and noted to be stable. Attention was then directed to the femur. The femur was gently hyperextended additional capsular release was performed as needed in order to allow adequate visualization of the proximal femur with elevation of the femur. Patient was placed in a hyperextended slightly adducted position with maximum external rotation. Box osteotome was used to check for any residual neck as well as sclerotic bone along the trochanter. Savona pepper was placed in the femur. Additional broaching was performed. Canal finder was used to determine the alignment of the canal and position. Size 1 broach was placed. The canal was then appropriately broached up to the templated size as long as there was adequate stability of the broach and serial advancement of the broach without excessive impingement. Specific attention was directed at avoiding varus attempting to direct the distal aspect of the broach more anteriorly and avoiding excessive anteversion. Trial reduction showed acceptable range of motion, good stability, no posterior impingement, adventism of leg length and appropriate lateral shuck. I also hyperflexed the hip and checked that there was no impingement anteriorly and there was good stability with flexion, adduction and internal rotation. Marcaine and Exparel were injected.. The stem was placed without difficulty. Repeat trial reduction and x-ray showed acceptable overall position, length, and no evidence of the femoral fracture. Final head was placed. Wound was meticulously irrigated with normal saline. The hip was reduced and additional Exparel and Marcaine were injected. The capsule was closed with interrupted nonabsorbable sutures. The fascia of the tensor was closed with interrupted and running Vicryl. No drain was placed. Any tensor fascia sanjuana muscle that appeared to be contused or injured which was a minimal amount was carefully resected. Capsule around the tensor was injected with Exparel and Marcaine. The skin was closed with barbed stitches for the subcutaneous tissue and skin. We also used surgical glue. The wound was dressed sterilely. Brief Betadine soak was also used and was meticulously irrigated with normal saline. Patient was transferred to recovery room in satisfactory condition. Complications: none Post-operative Condition: stable Disposition: Acute Care Plan for aftercare: The patient will be maintained on a standard total hip replacement protocol with weight bearing as tolerated and anterior hip precautions. The patient will receive Aspirin and sequential compression devices for DVT prophylaxis. The patient will be discharged home when safe for the home environment.
[2023-09-02] MEDS: CEFAZOLIN 2 GM/100 ML PREMIX 100 ML IV ×2 (13:20→21:19)
[2023-09-02] MEDS: TRANEXAMIC ACID 1,000 MG VIAL 1000 MG INJ ×2 (13:28→15:02)
--- NOTE | 2023-09-02 13:52 | SUR.OPER ---
Supine on padded [place] table with bilateral legs secured in padded positioning boots and suspended in positioning spars, operative leg in traction per surgeon. Head on one pillow. Arm on non-operative side secured on padded armboard <90 degrees abduction. Arm on operative side padded with gel pad and foam and resting across chest then secured with tape over sheet. Padded perineal post in place per surgeon.
--- NOTE | 2023-09-02 14:00 | DI.RAD.S_ITS ---
PROCEDURE: XR HIP W PEL IF DONE LT 2V INDICATIONS: INNER OP IMAGES TECHNIQUE: Intraoperative AP pelvis with lateral view(s) of the left hip(s). [facility] 3[facility] 01/09/2023, 10:29. FINDINGS: Left hip arthroplasty projects in the expected location. IMPRESSION: Intraoperative images guidance provided. Dictated by: Chase Huffman M.D. on 09/02/2023 at 16:19 Approved by: Chase Huffman M.D. on 09/02/2023 at 16:20
[2023-09-02] MEDS: BUPIVACAINE 0.25% (PF) 60 ML, EPINEPHrine 0.3 MG INJ (14:01)
[2023-09-02] MEDS: SODIUM CHLORIDE IRRIG SOLUTION 250 ML, POVIDONE-IODINE SPONGE STICKS 1 APPLIC IRR (14:01)
[2023-09-02] MEDS: BUPIVACAINE LIPOSOME 266 MG/20 ML VIAL INJ (15:00)
--- NOTE | 2023-09-02 15:30 | DI.RAD.S_ITS ---
PROCEDURE: XR HIP W PEL IF DONE LT 2V INDICATIONS: POST OP LEFT HIP TECHNIQUE: AP pelvis and lateral view of the left hip acquired. COMPARISON: [facility], CR, XR PELVIS WITH LATERAL HIP LEFT, 05/23/2023, 10:55. [facility], CR, XR HIP W PEL IF DONE LT 2V, 09/02/2023, 14:22. FINDINGS: Bones: Patient is status post left hip arthroplasty, with hardware components in expected positions. The hip joint appears congruent. The visualized bony structures appear intact. Soft tissues: Overlying postoperative changes are noted. No suspicious soft tissue densities. IMPRESSION: Expected post-operative appearance of a hip arthroplasty. Dictated by: Jason Talley M.D. on 09/02/2023 at 17:08 Approved by: Jason Talley M.D. on 09/02/2023 at 17:10
[2023-09-02] MEDS: LACTATED RINGERS 1,000 ML 100 ML IV (21:10)
[2023-09-02] MEDS: GABAPENTIN 300 MG CAPSULE PO (21:17)
[2023-09-02] MEDS: IBUPROFEN 400 MG TABLET PO ×2 (21:17→23:47)
[2023-09-02] MEDS: OXYCODONE IR 5 MG TABLET PO ×2 (21:17→23:48)
[2023-09-02] MEDS: ASPIRIN EC 81 MG TABLET PO (21:17)
[2023-09-02] MEDS: SERTRALINE 50 MG TABLET 100 MG PO (23:47)
[2023-09-03] MEDS: ACETAMINOPHEN 325 MG TABLET 650 MG PO ×2 (04:29→09:51)
[2023-09-03] MEDS: IBUPROFEN 400 MG TABLET PO ×2 (04:29→08:39)
[2023-09-03] MEDS: CEFAZOLIN 2 GM/100 ML PREMIX 100 ML IV (04:29)
[2023-09-03] MEDS: OXYCODONE IR 5 MG TABLET PO ×2 (04:29→08:39)
[2023-09-03 06:31] LABS: Hemoglobin 10.7 g/dL (12.0-16.0)
--- NOTE | 2023-09-03 07:24 | PM.DS.1 ---
History of Present Illness History of Present Illness Date Patient Seen: 09/03/23 Chief complaint: Left MIGUEL Narrative: Patient has had progressive worsening left hip pain. Pain is on daily basis restricting overall lifestyle and activities. Had conservative treatment including anti-inflammatories activity modification physical therapy. Recommended for left total hip arthroplasty. Today patient is feeling well. Is able to ambulate to use the toilet. Pain is controlled with oral medications. She does notice pain relief after surgery. She is ready to be discharged home today. Discharge Providers Provider Date of admission: 09/02/2023 Discharge Date: 09/03/23 Primary care physician: Mark Angel MD Consults: 08/25/23 15:32 Consult to Anesthesiology Routine Comment: Consulting Provider: Anesthesiologist Reason for consultation: Regional block for post operative pain control Has provider been notified: No 09/02/23 16:46 Consult to Discharge Planning Routine Comment: Consult to Occupational Therapy Evaluate & Treat Comment: Physician Instructions: Evaluate and treat Consult to Physical Therapy Evaluate & Treat Comment: Physician Instructions: post op MIGUEL protocol Discharge provider: Jass Marks PA-C Summary Hospital Course Discharge Diagnosis: Status post left hip total arthroplasty. Hospital Course: Multimodal pain control. Physical therapy. Status at Discharge Cognitive/behavioral status at discharge: oriented Functional status at discharge: uses cane/walker Overall status at discharge: patient is back to baseline Time Spent with Patient Time spent: Less than 30 minutes Exam Vital Signs (past 8 hours): - 09/02/23 23:54 Temperature 97.9 F Pulse Rate 72 Respiratory Rate 18 Blood Pressure 168/88 H Pulse Oximetry 98 Oxygen Flow Rate 0 Oxygen Delivery Method Room Air Oxygen Flow Rate 0 Narrative Exam Narrative: Dressing appears to be well-maintained. No drainage noted. Bordering skin shows no sign of acute infection. No tenderness to compression of the posterior thigh or calf. Able to dorsiflex plantar flex against resistance at the left ankle. Sensation grossly intact to the left lower extremity. 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 Lumbar radiculopathy Anesthesia complication Anxiety Easy bruisability Acid reflux Osteoarthritis Surgical History History of total right knee replacement Hx of arthroscopy of right knee (~2009) Hx of thumb surgery History of carpal tunnel surgery of right wrist History of lumpectomy of left breast History of hysterectomy Family History Father Heart disease Mother Heart disease Social History household members: spouse Smoking Status: Former smoker alcohol intake: current Discharge Assessment & Plan Assessment and Plan Assessment: Status post left hip arthroplasty Plan of Treatment: Pending Physical therapy's approval discharge to home today. Patient has already received post operative medications. The patient will be maintained on a standard total hip replacement protocol with weight bearing as tolerated and posterior hip precautions. The patient will continue with Aspirin 81mg once a day DVT prophylaxis, per Dr. Gallegos's instructions. Patient will start postop the physical therapy in 7-10 days.? Follow up in clinic 2 weeks for wound check. Discharge Plan Discharge Plan Patient Disposition: Home Provider Discharge Comment: Pending PT approval Discharge orders & Medications Discharge Orders: Discharge (Order); Ordered 09/03/23 Ordered By: Jass Marks Prescriptions: Continued sertraline 100 mg Tablet 100 mg PO BEDTIME acetaminophen [Tylenol Extra Strength] 500 mg tablet 1,000 mg PO DAILY gabapentin 300 mg capsule 300 mg PO .COMPLEX Qty: 90 2RF Rx Instructions: 1-2 PO Tid to begin at HS and titrate to pain relief Follow up/Referrals: Mark Angel MD [Primary Care Provider] - Mckayla Gallegos MD [Physician] - As previously scheduled (Follow up with Eusebio Alas PA-C, on 09/17/2022 @ 9:50 am at [facility] office in [place].) Diet/Activity/Treatments Diet: Diet as Tolerated Activity: Weightbearing as tolerated to left leg. Anterior hip precautions. Cold/Heat Therapy: Ice to hip as needed for pain. Skin/Wound/Dressing Care Report to your healthcare provider any signs of infection, such as:: chills, fever, night sweats, unusual drainage and unusual redness Dressing: May shower. Leave dressing in place until follow up in office. No bathing or otherwise soaking incision. Call the office if the dressing becomes saturated inside. Visit Report/Discharge Packet Instructions: DI for Hip Replacement, DI for Prescription Opioid Use Stand Alone Forms: Patient Portal/API, Surgery Discharge Discharge Data Primary Care Provider: Mark Angel Attending Provider: Mckayla Gallegos VTE Deep Vein Thrombosis/Pulmonary Embolism Present on Admission: No
[2023-09-03] MEDS: ASPIRIN EC 81 MG TABLET PO (08:39)
[2023-09-03 08:53] VITALS: BP 174/72; PULSE 65; RESP 18; TEMP 36.6; O2SAT 99
--- NOTE | 2023-09-03 09:15 | PT.IIE ---
Current Diagnoses Unilateral primary osteoarthritis, left hip (09/02/23) Surgery Performed Operation Date: 09/02/23 13:45 Actual Procedures p Total Hip Arthroplasty/Anterior Approach(Left) - Mckayla Gallegos MD Surgical History (Last Reviewed 02/26/23 @ 09:29 by Nomi Gibson DO) History of carpal tunnel surgery of right wrist History of hysterectomy History of lumpectomy of left breast History of total right knee replacement Hx of arthroscopy of right knee (~2009) Hx of thumb surgery Medical History (Last Updated 02/26/23 @ 09:35 by Nomi Gibson DO) Acid reflux Anesthesia complication Anxiety Degenerative joint disease (DJD) of hip Easy bruisability Lumbar radiculopathy Neural foraminal stenosis of lumbar spine Osteoarthritis Physical Therapy Inpatient Evaluation/Re-Eval M1 PT/OT-IP Prior Functional Status Start: 09/03/23 09:50 Freq: NEEDED Status: Discharge Protocol: Document 09/03/23 09:50 [facility] (Rec: 09/03/23 10:02 [facility] [id number]) Medical Review Prior Functional Status Medical History Reviewed Yes Communication Independent Mobility and Gait Pt states was able to get around without any devices but had pain. Activities of Daily Living and IADL's Pt had pain during ADl and IADL needs. Social History Household Members spouse Living Arrangements House Number of Floors (Floors) Two Floors Number of Stairs To Enter/Railing? Pt has one step to get to the main level and able to stay there. Home Environment Standard Height Toilet,Walk in Shower,Tub/Shower Home Equipment Four Wheel Walker,Hand Held Shower Additional Social History Comment Pt's to be able to assist pt for needs. M1 PT/OT-IP Prior Functional Status Start: 09/03/23 12:25 Freq: NEEDED Status: Active Protocol: Document 09/03/23 09:15 [facility] (Rec: 09/03/23 12:38 AB [email or web address]) Medical Review Prior Functional Status Medical History Reviewed Yes Communication able to make needs known Mobility and Gait pt stated that she was independent with all mobilities and ambulation without AD Social History Household Members spouse Living Arrangements House Number of Floors (Floors) Two Floors Number of Stairs To Enter/Railing? pt stays on main level of the house has 1 step to enter the house Home Environment Standard Height Toilet,Walk in Shower Home Equipment Front Wheel Walker,Hand Held Shower,Grab Bars Near Toilet M2 PT-IP Current Condition Start: 09/03/23 12:25 Freq: NEEDED Status: Active Protocol: Document 09/03/23 09:15 [facility] (Rec: 09/03/23 12:38 AB [email or web address]) Physical Therapy Current Condition Current Condition Evaluation Date 09/03/23 Treatment Diagnosis s/p L MIGUEL anterior approach; difficulty in walking Onset Date 09/02/23 M3 PT-IP Subjective Start: 09/03/23 12:25 Freq: NEEDED Status: Active Protocol: Document 09/03/23 09:15 AB (Rec: 09/03/23 12:38 AB [email or web address]) Subjective Physical Therapy Visit Type Type Initial Evaluation Visit Start Time 09:15 Visit Stop Time 10:05 Total Visit Minutes 50 Number of RADIO STATION OPERATOR Visits 0 Physical Therapy Visit Comments Patient Comments agreeable to do PT Therapy Pain Assessment Pain When Pain Assessed At Rest Pain Present Pain Present Pain Reported Location Left Hip Intensity 2 Scale Used Numeric (0 - 10) Pain Management Techniques Apply Cold,Distraction, Modification of Treatment,Re- positioning,Timing of Activity with Medications M4 PT-IP Mobility and Gait Start: 09/03/23 12:25 Freq: NEEDED Status: Active Protocol: Document 09/03/23 09:15 AB (Rec: 09/03/23 12:38 AB [email or web address]) PT-Bed Mobility Assessment Supine to Sit Supine to Sit Standby Assistance Sit to Supine Sit to Supine Standby Assistance PT-Transfer Assessment Sit to and From Stand Sit to and from Stand Standby Assistance,Contact Guard Assistance,1 Person Assistance,Use of Upper Extremities Equipment Transfer Assistive Device Gait Belt,Front Wheeled Walker Orthotic/Prosthetic Devices or Brace: No Transfers Transfer Destination Bed,Chair Transfer Technique ambulated Transfer Ability Level of Assist Standby Assistance,Contact Guard Assistance,1 Person Assistance,Use of Upper Extremities Comments Mobility Comments pt sitting on the chair and agreeable to do PT. pt just finished with OT. reviewed L hip anterior precautions with pt and pt needing cues to recall. pt completed sit to stand from the chair CGA and ambulated ~ 20 ft in room using FWW cGA and sat on EOB. pt completed sit<>supine SBA. educated pt on stair climbing. pt completed sit to stand from the EOB SBA and ambulated towards the platform step using FWW SBA. completed up/ down step CGA and cues for techniques. pt with confusion and needs cues for hip precautions and safety. pt sat on EOB. reviewed precautions again x 3 and pt eventually able to recall. completed sit to stand from EOB SBA and ambulated in the hallway using FWW SBA ~ 50 ft. completed up/down platform step using FWW CGA. pt ambulated back to her room using FWW SBA. positioned pt on the chair. call light and table placed within reach. educated pt on safety and informing her spouse to assist her when needed and inform him of her hip precautions. pt understood. Gait Assessment Gait Gait Assistance Required: Standby Assistance,Contact Guard Assist Distance (Feet) 50 Able to Maintain Weight Bearing Status Yes During Gait Assistive Devices Assistive Device Gait Belt,Front Wheeled Walker Orthotic/Prosthetic Devices or Brace: No Gait Deviations General Gait Pattern Decreased Feet Clearance Factors Limiting Gait Function Factors Limiting Gait Function Decreased Activity Tolerance, Decreased Strength,Difficulty Following Directions,Limited Range of Motion,Pain,Poor Balance,Poor Safety Awareness Stair Climbing Assessment Evaluation Level of Assist On Stairs Contact Guard Assistance,1 Person Assistance Devices Stair Climbing Assistive Devices Front Wheel Walker Technique/Endurance Stair Climbing Direction Ascend and Descend Stair Climbing Technique Step to Step Number of Steps Climbed 1 Query Text: Stair Climbing Set # Repetitions (reps) 4 PT-Balance Assessment Sitting Balance and Reactions Static Sitting Balance Ability Normal Dynamic Sitting Balance Ability Normal Standing Balance and Reactions Static Standing Balance Ability Good Dynamic Standing Balance Ability Fair Device Used FWW M5 PT-IP Objective Assessments Start: 09/03/23 12:25 Freq: NEEDED Status: Active Protocol: Document 09/03/23 09:15 AB (Rec: 09/03/23 12:38 AB [email or web address]) Orientation Orientation/Cognition Level of Alertness Alert Orientation Name,Place,Situation Language Function Ability No Deficits Noted Safety Awareness Decreased Safety Awareness Memory Description Short Term Impaired Gross Range of Motion Lower Extremity ROM Assessment Within Functional Limits Strength Lower Extremity Strength Assessment Left Impaired Hip 3+/5 Knee 4-/5 Coordination Assessment Gross Coordination Gross Coordination WNL Sensation Assessment Sensation Gross Sensation WNL Muscle Tone Muscle Tone WNL Yes M6 PT-IP Treatment Start: 09/03/23 12:25 Freq: NEEDED Status: Active Protocol: Document 09/03/23 09:15 AB (Rec: 09/03/23 12:38 AB [email or web address]) Physical Therapy Treatment Education Education Provided Precautions,Weight Bearing Status,Post-Op Packet,Safety M7 PT-IP Assessment and Plan Start: 09/03/23 12:25 Freq: NEEDED Status: Active Protocol: Document 09/03/23 09:15 (Rec: 09/03/23 12:38 [email or web address]) PT Summary Assessment and Plan Potential Rehabilitation Potential Fair Status of Condition at Evaluation Stable Summary Impairments Pain,ROM,Strength,Balance, Coordination,Sensation,Tone, Cognition,Bed Mobility, Transfers,Gait,Activity Tolerance Assessment Summary pt is a 72 y/o F s/p L MIGUEL anterior approach. pt has L hip anterior precautions and is WBAT. pt initially requiring cues to recall hip precautions but able to recall towards end of PT session. pt needing SBA to CGA with mobility using FWW and plans to go home and spouse to assist her. pt may go home when medically stable. pt has outpt PT set up. Goals Bed Mobility Goal Independent Transfer Goal Independent,Front Wheeled Walker Gait Goal Independent,Front Wheel Walker Gait Distance 300 Other Goals up/down 1 step using FWW mod I Days to Meet Goals 5 Frequency of Treatment Frequency Of Treatment Twice a Day Treatment Plan Physical Therapy Treatment Plan Bed Mobility Training,Transfer Training,Gait Training, Therapeutic Exercise,Balance Retraining,Post Op Education, Discharge Planning,Hot or Cold Pack,Neuromuscular Re-ed, Coordination Retraining,Manual Therapy Precautions Anterior Hip Precautions No Hip Extension,No Hip External Rotation Weight Bearing Status Weight Bearing Status Weight Bear as Tolerated Allowed Weight Bearing Amount (enter % LLE WBAT or #) (%) Recommendations To Nursing Amount of Assist Needed 1 Person Assist Discharge Recommendations PT Discharge Recommendations Home with Assistance, Outpatient PT Transportation Needs at Discharge Private Vehicle
--- NOTE | 2023-09-03 09:23 | OT.IP.EVAL ---
Current Diagnoses Unilateral primary osteoarthritis, left hip (09/02/23) Surgery Performed Operation Date: 09/02/23 13:45 Actual Procedures p Total Hip Arthroplasty/Anterior Approach(Left) - Mckayla Gallegos MD Past Medical History (Last Updated 02/26/23 @ 09:35 by Nomi Gibson DO) Acid reflux Anesthesia complication Anxiety Degenerative joint disease (DJD) of hip Easy bruisability Lumbar radiculopathy Neural foraminal stenosis of lumbar spine Osteoarthritis Surgical History (Last Reviewed 02/26/23 @ 09:29 by Nomi Gibson DO) History of carpal tunnel surgery of right wrist History of hysterectomy History of lumpectomy of left breast History of total right knee replacement Hx of arthroscopy of right knee (~2009) Hx of thumb surgery Occupational Therapy Inpatient Evaluation/Re-Eval M1 PT/OT-IP Prior Functional Status Start: 09/03/23 09:50 Freq: NEEDED Status: Active Protocol: Document 09/03/23 09:50 [facility] (Rec: 09/03/23 10:02 [facility] [id number]) Medical Review Prior Functional Status Medical History Reviewed Yes Communication Independent Mobility and Gait Pt states was able to get around without any devices but had pain. Activities of Daily Living and IADL's Pt had pain during ADl and IADL needs. Social History Household Members spouse Living Arrangements House Number of Floors (Floors) Two Floors Number of Stairs To Enter/Railing? Pt has one step to get to the main level and able to stay there. Home Environment Standard Height Toilet,Walk in Shower,Tub/Shower Home Equipment Front Wheel Walker,Hand Held Shower Additional Social History Comment Pt's to be able to assist pt for needs. M2 OT-IP Current Condition Start: 09/03/23 09:50 Freq: Status: Active Protocol: Document 09/03/23 09:50 [facility] (Rec: 09/03/23 10:02 [facility] [id number]) Occupational Therapy Current Condition Current Condition Evaluation Date 09/03/23 Treatment Diagnosis S/P L MIGUEL anterior approach Diagnosis Onset Date 09/02/23 Post Operative Precautions Anterior Hip Precautions No Hip Extension,No Hip External Rotation M3 OT- IP Subjective and Pain Start: 09/03/23 09:50 Freq: Status: Active Protocol: Document 09/03/23 09:50 [facility] (Rec: 09/03/23 10:02 [facility] [id number]) OT- Subjective Occupational Therapy Visit Type Type Initial Evaluation Visit Start Time 08:54 Visit Stop Time 09:23 Total Visit Minutes 29 Occupational Therapy Visit Comments Patient Comments Pt wanting to use the bathroom and wanting to get dressed. Patient/Caregiver Goals To go home. OT Pain Assessment Pain When Pain Assessed At Rest Pain Present Pain Present Pain Reported Location LLE Intensity 2 Scale Used Numeric (0 - 10) M4 OT- IP ADL's Start: 09/03/23 09:50 Freq: Status: Active Protocol: Document 09/03/23 09:50 [facility] (Rec: 09/03/23 10:02 [facility] [id number]) OT [id number] General Evaluation Self-Feeding Ability Independent OT ADL-Grooming General Evaluation Grooming Ability Independent OT ADL-Oral Care General Eval Oral Care Ability Independent OT ADL-Dressing General Eval Upper Body Dressing Ability Independent Lower Body Dressing Ability Moderate Assistance Areas Needing Assistance Underpants/Brief,Pants/Shorts, Socks,Shoes Comments OT Dressing Comments Due to pain pt not able to bend over to be able to dress her left LE. Able to show LB dressing equipment to increase her ease as pt not allowed to externally rotate her LLE at this time due to her hip precautions. Otherwise pt will need assist from her . OT ADL-Toileting General Evaluation Toileting Ability Standby Assistance OT ADL-Bathing Comments OT Bathing Comments Pt states will have her assist her at home and use the FWW in the shower. Educated of covering her bandage for the shower. M5 OT- IP IADL's Start: 09/03/23 09:50 Freq: Status: Active Protocol: Document 09/03/23 09:50 [facility] (Rec: 09/03/23 10:02 [facility] [id number]) OT-Instrumental Activities of Daily Living Deficits IADL Deficits Identified Deficits Home Safety Awareness Awareness of Need for Assistance at Home Good Awareness Ability to Problem Solve Emergency Able to Problem Solve Situations Medication Management Medication Management No Deficits Identified Money Management Money Management No Deficits Identified Meal Preparation Meal Preparation Caregiver Provides Assist Manager Data Warehousing Manager Data Warehousing Caregiver Provides Assist M6 OT- IP Functional Cognition Start: 09/03/23 09:50 Freq: Status: Active Protocol: Document 09/03/23 09:50 [facility] (Rec: 09/03/23 10:02 [facility] [id number]) Cognitive Factors Limiting Selfcare Function Cognitive Ability Level of Alertness Alert Patient Orientation Name,Age,Birthday,Month,Date, Year,Day of Week,Place, Situation Attention Span Ability Capable of Focused Attention, Capable of Sustained Attention Ability to Follow Commands Able to Follow Multi-Step Commands Cognitive Comments Cognitive Assessment Comments Pt is intact and just needing cues to slow down and to have the FWW in front of her. OT- Vision and Hearing OT- Hearing Assessment OT- Hearing Assessment WFL OT- Vision Assessment Visual Attentiveness WFL Occular Pursuits WFL M7 OT- IP Mobility and Balance Start: 09/03/23 09:50 Freq: Status: Active Protocol: Document 09/03/23 09:50 [facility] (Rec: 09/03/23 10:02 [facility] [id number]) OT- Bed Mobility Assessment Supine to Sit Supine to Sit Assist Independent Sit to Supine Sit to Supine Assist Independent Scooting Scooting to Edge of Bed Independent OT-Transfer Assessment Sit to and From Stand Sit to and from Stand Standby Assistance Transfers Transfer Ability Standby Assistance Technique Transfer Destination Bed,Chair,Toilet Transfer Technique Stand Step Pivot Devices Transfer Assistive Devices Gait Belt,Front Wheeled Walker Comments Mobility Comments Educated to step forwards with her LLE and backwards with the RLE first. In addition to take small steps while turning and to pear picker her feet. OT- Balance Assessment Sitting Balance and Reactions Static Sitting Balance Ability Normal Dynamic Sitting Balance Ability Good Standing Balance and Reactions Static Standing Balance Ability Good Dynamic Standing Balance Ability Fair M8 OT- IP Objective Assessments Start: 09/03/23 09:50 Freq: Status: Active Protocol: Document 09/03/23 09:50 [facility] (Rec: 09/03/23 10:02 [facility] [id number]) OT Gross Range of Motion Upper Extremity Range of Motion Assessment Within Functional Limits OT Strength Upper Extremity Strength Assessment Within Functional Limits OT-Muscle Tone Assessment Muscle Tone WNL Yes M9 OT- IP Assessment and Plan Start: 09/03/23 09:50 Freq: Status: Active Protocol: Document 09/03/23 09:50 [facility] (Rec: 09/03/23 10:02 [facility] [id number]) OT Summary Assessment and Plan Potential Rehabilitation Potential Excellent Analytic Complexity at Evaluation Low Summary OT Impairments Pain Progress Towards Goals Progressing Toward Goals Assessment Summary Pt low complexity and main barriers are pain and having difficulty to do her LB dressing needs at this time and will benefit from assist or obtaining LB dressing equipment. Pt will have a supportive to assist at home. Pt to go home when medically stable and go to outpt PT. Goals Dressing Goal Independent,Milieu Technician,Sock Aid Toileting Goal Independent Bathing Goal Independent Shower Transfer Goal Independent Days to Meet Goals 3 Frequency of Treatment Frequency Of Treatment Once a Day Treatment Plan OT Treatment Plan ADL Training,Functional Mobility,Patient/Family Education,Discharge Planning Discharge Recommendations OT Discharge Recommendations Home with Assistance, Outpatient PT Home Equipment Needs LB dressing equipment Transportation Needs at Discharge Private Vehicle
--- NOTE | 2023-09-03 14:06 | CM.DANOTE ---
Initial DCP Assessment Visit Reviewed EMR and team rounds for pt's medical status. Pt has a hx of worsening L-hip pain which as been restricting her daily activities and mobility. She had tried conservative measures and OP PT with no lasting benefit. Pt was placed in a [facility] bed following her total L-hip arthroplasty completed yesterday 09/02/23. Spouse will transport pt home later today, plan is for her to begin OP PT in 7-10 days, with f/u Ortho visit in 2-weeks. No furher DCP needs identified at this time. Payor: [facility] [employer] Attending: Dr. 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 No Advance Directives on File No History Provided By Patient,Medical Record Prior Living Arrangements House Household Members spouse Type of transporation used prior to Drives own vehicle admit Independent with ADL's Yes Is patient alert and oriented? Yes Comment N/A Caregiver for Another No DME Already Rented / Owned FWW / Walker Patient/Family Preference OP PT Therapy Discharge Plan Home Transportation Arrangement Spouse bedside and confirms he can provide transport at d/c Referrals Initiated None needed Whiteboard Updated in Patient Room with Yes name and ext. # of Farm Contractor Review Status In Process Please Provide Date Initial DC 09/03/23 Assessment Was Performed Pre-Anesthesia Assessment Start: 08/26/23 08:38 Freq: Status: Discharge Protocol: Document 08/26/23 08:38 CAB (Rec: 08/26/23 09:32 CAB [id number]) Pre-Anesthesia Assessment Preferred Name Leandra Patient Information Reviewed Via Phone Assessment Assessment Completed With Patient Diagnostic Results BMP/CMP,CBC,EKG Comment Outside labs/EKG scanned Primary Care Provider Mark Angel Comment PCP pre-op 06/06/23 scanned Medical Clearance Received Yes Seen Specialist in Last 12 Months Yes Specialist Seen Orthopedist Primary Language Tajik Preferred Language Tajik 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 Required No Height 165.1 cm Weight 56.699 kg Body Mass Index (BMI) 20.7 Hearing Ability Normal Visual Assist Magnifying Glass Dentition Type Teeth, Natural Present Barriers to Learning None Hx Anesthesia Reactions Yes: Whole body shakes intermittently x 2 months s/p knee surgery '10, wght loss Hx Family Anesthesia Reaction No Hx Malignant Hyperthermia No Hx Blood Transfusions No Anesthesia Review Requested No 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 No Does patient have PERALTA/SOB No Hx Sleep Apnea No CPAP/BIPAP use not prescribed Currently Taking a Beta Lacie No Can You Climb a Flight of Stairs Without Yes SOB Hx Chest Pain No Hx SOB No Hx Syncope or Dizziness No Anti-Coagulant Therapy No Has a Journeyman Pipe Fitter No Cardiac Testing No Hx Pacemaker/ICD No Pacemaker Rep Required? No Cardiac Clearance Received Not Applicable Diet Type At Home Regular Dysphagia No Gastrointestinal Symptoms Reflux Urinary Catheter Present No Hx Urinary Self Catheterization No Diabetes No Patient No Lactating No Hx Drug Resistant Organism No Presence of External or Internal Medical Yes: Right knee prosthesis Devices Received a COVID vaccine? Yes Received all doses? Yes Marital Status Lives With spouse Current Living Arrangements House Number of Floors (Floors) Two Floors Support System Spouse Does the Patient Have Assistance After Yes Surgery Patient Discharge Plan Description Return Home Comment Pt advised overnight length of stay per surgeon Feels Safe in Current Environment Yes Been Physically Hurt or Threatened By a No Person in Current Environment Do you have thoughts of harming yourself None or others? Are you currently considering suicide? No Do you have a plan to hurt yourself or No Plan others? Do You Have Any Spiritual Beliefs That No May Affect Your HC Choices? Do You Have Any Cultural Practices That No May Affect Your HC Choices? Comment Jainism Who Can We Speak to About Patient's Care Family, friends Identifying Code for Release of Patient Declines to issue Information Health Care Proxy/Next of Kin Zachery () Health Care Proxy Emergency Contact Name Zachery () Emergency Contact Advance Directives? No Advance Directives on File No Power of Grant Officer No PAC Instructions Do not shave/clip surgical site,Durable medical equipment ,Medications to take/avoid, Nasal antibiotic,No ETOH/ petroleum product on skin DOS, NPO,Pre-surgical wash,Sensory aids,Sturdy shoes/comfortable clothes,Do not bring valuables and remove jewelry
== END 2023-09-03 10:43 | disposition home or self-care (01) ==
LOC: OR 11:39 → AC 11:44
PROVIDERS: PCP Family Medicine; Referring Provider Orthopaedic Surgery; Visit Provider Orthopaedic Surgery
PROC: (CPT 27130; principal; 2023-09-02 13:45)
DX: M16.12 Unilateral primary osteoarthritis, left hip (principal)
CPT/HCPCS: 27130; 36415; 73502; 76000; 85014; 85018; 93005; 93010; 97161; 97165; 97530; 97535; C1776; C9290; J0171; J0690; J1100; J2405; J2704